=== PATIENT | female | born 1985 | race Caucasian/White ===

== ENCOUNTER 2023-12-23 03:20 | Emergency (ER) | payer BC ==
[~2023-12-23] VITALS: Ht 172.7 cm; Wt 70.5 kg
[2023-12-23 03:25] VITALS: TEMP 97.8
[2023-12-23] MEDS ORDERED: Ketorolac 30 MG/ML VIAL IV ONE (03:45)
[2023-12-23] MEDS ORDERED: LORazepam 2 MG/ML 1 ML VIAL IV ONE (03:45)
[2023-12-23 03:54] LABS: BASO # 0.1 K/mm3 (0.0-0.2); BASO % 0.8 % (0.0-2.0); EOS # 0.1 K/mm3 (0.0-0.7); EOS % 1.4 % (0.0-4.0); GRAN # 3.5 K/mm3 (1.4-6.5); HEMOGLOBIN 13.4 g/dl (12.5-16.0); LYMPH # 2.8 K/mm3 (1.2-3.4); LYMPH % 40.1 % (20.0-51.0); MEAN CELL VOLUME 98 fl (80.0-100.0); MEAN CORPUSCULAR HEMOGLOBIN 34 pg (27-31); MEAN CORPUSCULAR HGB CONC 34 g/dl (33.0-37.0); MEAN PLATELET VOLUME 9.6 fl (7.4-10.4); MONO # 0.5 K/mm3 (0.1-0.6); MONO % 7.3 % (1.7-9.3); PLATELET COUNT 237 K/mm3 (130-400); REDCELL DISTRIBUTION WIDTH-CV 11.4 % (11.5-14.5)
[2023-12-23 04:24] LABS: ALANINE AMINOTRANSFERASE 15 U/L (0-55); ALBUMIN 4.1 g/dL (3.5-5.0); AST,SGOT 14 U/L (5-34); BILIRUBIN,TOTAL 0.4 mg/dL (0.2-1.2); CHLORIDE 107 mEq/L (98-107); CREATININE, serum 0.75 mg/dL (0.57-1.11); GLUCOSE 89 mg/dL (70-99); LIPASE 26 U/L (8-78); POTASSIUM 3.7 mEq/L (3.5-4.5); SODIUM 141 mEq/L (136-145); TOTAL PROTEIN 7.6 g/dl (6.2-8.1); TROPONIN-I < 0.010 ng/mL (0.00-0.033)
[2023-12-23 04:28] LABS: COLLECTION METHOD CLEAN CATCH
[2023-12-23 04:37] LABS: PH 5.5 (5.0-8.5); URINE APPEARANCE CLEAR (CLEAR/HAZY); URINE BLOOD NEGATIVE (NEGATIVE); URINE COLOR YELLOW (YELLOW); URINE GLUCOSE NEGATIVE (NEGATIVE); URINE KETONE NEGATIVE (NEGATIVE); URINE NITRATE NEGATIVE (NEGATIVE); URINE PROTEIN(semi-quant) NEGATIVE (NEGATIVE); URINE UROBILINOGEN 0.2 E.U/dL (0.2-1.0)
[2023-12-23 04:39] LABS: ALKALINE PHOSPHATASE 53 U/L (40-150); ANION GAP 13 mmol/L (7-16); BLOOD UREA NITROGEN 11 mg/dL (7-19)
[2023-12-23 05:23] VITALS: BP 121/81; PULSE 69
== END 2023-12-23 05:25 | disposition home or self-care (01) ==
LOC: COL.ER 03:20
PROVIDERS: Emergency Medicine
DX: R07.2 Precordial pain (principal)
CPT/HCPCS: J2060